=== PATIENT | female | born 1985 | race Caucasian/White ===

== ENCOUNTER 2017-07-09 16:22 | Emergency (ER) | payer OTHER ==
[2017-07-09 16:39] VITALS: BP 141/87
--- NOTE | 2017-07-09 17:00 | ED Physician Documentation ---
General Adult - HISTORIAN Historian: patient - HPI Stated Complaint: cough, congestion Chief Complaint: General Adult Additional Information: Cough, sinus congestion, ear pain, since yesterday. Has felt hot. Has taken tylenol and robitussion w/o relief. - ROS CONST: no problems - PAST HX Past History: none Allergies/Adverse Reactions: Allergies Allergy/AdvReac Type Severity Reaction Status Date / Time No Known Allergies Allergy Verified 07/09/17 16:39 Home Medications: Ambulatory Orders Medication Instructions Recorded Azithromycin [Zithromax] 250 mg PO DAILY #6 tablet 07/09/17 Glimepiride [Amaryl] 2 mg PO 0730 07/09/17 Insulin Glargine,Hum.rec.anlog 25 unit SQ HS 07/09/17 [Lantus Solostar] Loratadine [Allergy] 10 mg PO DAILY #30 tablet 07/09/17 Metformin HCl [Glucophage] [place] [address] 07/09/17 - SOCIAL HX Smoking History: cigarettes - FAMILY HX Family History: No - VITAL SIGNS Vital Signs: Vital Signs Temp Pulse Resp BP Pulse Ox 98.7 F 100 H 18 141/87 98 07/09/17 16:35 07/09/17 16:35 07/09/17 16:35 07/09/17 16:35 07/09/17 16:35 - REVIEWED ASSESSMENTS Nursing Assessment Reviewed: Yes Vitals Reviewed: Yes General Adult Physical Exam - PHYSICAL EXAM GENERAL APPEARANCE: mild distress EENT: eye inspection normal, ENT inspection normal, pharynx normal, TM's nml, other (no pain with palpation facial sinus areas) NECK: normal inspection, lymphadenopathy (tender on right, ant cerv, 1-2+) RESPIRATORY: no resp distress, breath sounds normal CVS: reg rate & rhythm, heart sounds normal BACK: normal inspection SKIN: warm/dry, normal color EXTREMITIES: normal range of motion (gait and stance) NEURO: CN's nml as tested, motor nml, sensation nml, cognition normal Discharge Clincal Impression: Sinus congestion Prescriptions: Azithromycin [Zithromax] 250 mg PO DAILY #6 tablet Loratadine [Allergy] 10 mg PO DAILY #30 tablet Referrals: Primary Doctor,No [Primary Care Provider] - 2 Days Condition: Good Disposition: 01 HOME, SELF-CARE Decision to Admit: NO Decision Time: 17:00
== END 2017-07-09 17:01 | disposition home or self-care (01) ==
LOC: ED 16:22
DX: R09.81 Nasal congestion (principal)
CPT/HCPCS: 99282

== ENCOUNTER 2018-05-03 18:16 | Emergency (ER) | payer SELFPAY ==
[2018-05-03 18:47] VITALS: BP 144/94
--- NOTE | 2018-05-03 18:48 | ED Physician Documentation ---
General Adult - HISTORIAN Historian: patient - HPI Stated Complaint: left facial swelling Chief Complaint: General Adult Additional Information: Patient presents to ED with a 2 day history of left facial swelling. Patient is uncontrolled diabetic and has been off her insulin due to financial difficulties. She states there is no pain and she does have bad teeth. Onset: days ago Timing: still present Severity: mild - ROS CONST: denies: fever EYES/ENT: denies: problems with vision CVS/RESP: denies: cough GI/: denies: vomiting, nausea MS/SKIN/LYMPH: none NEURO/PSYCH: denies: headache - PAST HX Past History: none Other History: diabetes Type 2 Surgeries/Procedures: none Allergies/Adverse Reactions: Allergies Allergy/AdvReac Type Severity Reaction Status Date / Time No Known Allergies Allergy Verified 07/09/17 16:39 Home Medications: Ambulatory Orders Medication Instructions Recorded Fluconazole [Diflucan] 150 mg PO QD #1 tablet 05/03/18 NK 05/03/18 Penicillin V Potassium [Pen V K] 500 mg PO TID #30 tablet 05/03/18 - SOCIAL HX Smoking History: non-smoker Alcohol Use: none Drug Use: none - FAMILY HX Family History: No - VITAL SIGNS Vital Signs: Vital Signs Temp Pulse Resp BP Pulse Ox 141/87 07/09/17 17:01 - REVIEWED ASSESSMENTS Nursing Assessment Reviewed: Yes Vitals Reviewed: Yes General Adult Physical Exam - PHYSICAL EXAM GENERAL APPEARANCE: no distress EENT: KARELY, other (2 cm area of redness and swelling on left cheek ) NECK: normal inspection RESPIRATORY: no resp distress, chest non-tender, breath sounds normal CVS: reg rate & rhythm, heart sounds normal ABDOMEN: soft, normal bowel sounds BACK: normal inspection, no CVA tenderness SKIN: warm/dry EXTREMITIES: non-tender NEURO: oriented X3 Discharge Clincal Impression: Cellulitis Qualifiers: Site of cellulitis: face Qualified Code(s): L03.211 - Cellulitis of face Prescriptions: Fluconazole [Diflucan] 150 mg PO QD #1 tablet Penicillin V Potassium [Pen V K] 500 mg PO TID #30 tablet Referrals: Primary Doctor,No [Primary Care Provider] - 2 Days Additional Instructions: 1. Tylenol and/or ibuprofen as needed for pain 2. Take antibiotics until complete 3. Call Lauren Lewis to set up appointment for follow up 4. Return to ER for new or worsening symptoms Condition: Stable Disposition: 01 HOME, SELF-CARE Decision to Admit: NO Date of Decison to Admit: 05/03/18 Decision Time: 18:48
== END 2018-05-03 18:55 | disposition home or self-care (01) ==
LOC: ED 18:16
DX: L03.211 Cellulitis of face (principal); E11.65 Type 2 diabetes mellitus with hyperglycemia; T38.3X6A Underdosing of insulin and oral hypoglycemic [antidiabetic] drugs, initial encounter; Z91.120 Patient's intentional underdosing of medication regimen due to financial hardship
CPT/HCPCS: 99282; 99283